=== PATIENT | male | born 1995 | race African-American/Black ===

== ENCOUNTER 2022-03-20 10:52 | Emergency (ER) | payer OTHER ==
[2022-03-20 11:15] VITALS: BP 114/72; PULSE 67; RESP 16; TEMP 98.6; BMI 28.8
[2022-03-20] MEDS ORDERED: LIDOCAINE 5% TOPICAL PATCH TP ONE (12:24)
[2022-03-20] MEDS ORDERED: IBUPROFEN 600 MG TABLET (FP) PO ONE ×2 (12:24→12:26)
[2022-03-20] MEDS ORDERED: LIDOCAINE 5% TOPICAL PATCH ONE (12:26)
[2022-03-20] MEDS ORDERED: LIDOCAINE PATCH REMOVAL MC ONE (22:00)
== END 2022-03-20 13:08 | disposition home or self-care (01) ==
LOC: JER 10:52
DX: M25.561 Pain in right knee (principal)
CPT/HCPCS: 73560-TC-RT-FY; 99284-25